=== PATIENT | female | born 1995 | race Two or more races ===

== ENCOUNTER 2016-09-24 21:42 | Emergency (ER) | payer MEDICAID ==
[2016-09-24 22:04] VITALS: BP 111/66; PULSE 71; RESP 18; TEMP 98.6; O2SAT 99
== END 2016-09-25 00:43 | disposition left against medical advice (07) ==
LOC: ED 21:42
DX: Z02.89 Encounter for other administrative examinations (principal); R10.9 Unspecified abdominal pain